=== PATIENT | male | born 1970 | race Caucasian/White ===

== ENCOUNTER → 2017-04-05 | Outpatient (CLI) | payer OTHER | LOC: FIMAGING 09:50 | PROVIDERS: ATTEND Family Medicine | DX: M25.532 Pain in left wrist (principal); M79.89 Other specified soft tissue disorders ==

== ENCOUNTER 2018-10-31 10:47 | Day surgery (SDC) | payer OTHER ==
[2018-10-31] MEDS ORDERED: DIAZEPAM 5 MG TAB PO ONE (10:49)
[2018-10-31] MEDS ORDERED: diphenhydrAMINE 25 MG CAP PO ONE (10:49)
[2018-10-31] MEDS ORDERED: NS 1,000 ML IV ONE (10:49)
[2018-10-31] MEDS ORDERED: FAMOTIDINE 20 MG TAB PO ONE (10:49)
[2018-10-31] MEDS ORDERED: ASPIRIN EC 325 MG TAB PO ONE (10:49)
[2018-10-31 11:20] LABS: PLATELET COUNT 184 10^3/uL (150-400)
[2018-10-31 11:30] LABS: INR 1.01 (0.83-1.16); PROTIME(PATIENT) 12.9 SEC (12.0-15.0)
[2018-10-31] MEDS ORDERED: fentaNYL 100 MCG/2 ML INJ ONE (12:14)
[2018-10-31] MEDS ORDERED: IOPAMIDOL (ISOVUE-370) 150 ML BTL IV ONE (12:14)
[2018-10-31] MEDS ORDERED: MIDAZOLAM 2 MG/2 ML VIAL ONE (12:14)
[2018-10-31] MEDS ORDERED: LIDOCAINE 1% 300 MG/30 ML SDV ONE (12:14)
--- NOTE | 2018-10-31 12:15 | PDHPUP ---
History & Physical Update H&P update statement: This history and physical update is based on an assessment of the patient which was completed after admission or registration (within 24 hours), but prior to the surgery/procedure. H&P update: H&P reviewed & patient examined, no change in patient's condition since H&P completed
--- NOTE | 2018-10-31 12:15 | PDPROPOC ---
Sedation Plan of Care Sedation Plan of Care: vital signs stable, mental status noted, patient educated of risks, benefits, alternatives, patient can tolerate sedation ASA Classification: ASA 2 Planned drugs: fentanyl, midazolam Mallampati Score: Class 1 Mallampati Reference Image: Patient passed 3-3-2 rule?: Yes
[2018-10-31] MEDS ORDERED: VERAPAMIL 5 MG/2 ML VIAL ONE (12:20)
[2018-10-31] MEDS ORDERED: HEPARIN 10,000 UNIT/10 ML MDV (1,000 UNIT/ML) ONE (12:21)
[2018-10-31] MEDS ORDERED: ATROPINE SULFATE 1 MG/10 ML SYR IVP PRN (14:24)
--- NOTE | 2018-10-31 14:24 | PDDXCAT ---
Diagnostic Cath Note - . 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 LCX: Luminal irregularities RCA: Dominant: Luminal irregularities of up to 20%. EDP: 13 mm of mercury LVEF: 70%, hypercontractile Wall motion: None Complications: None Estimated blood loss: <50ml Closure method: TR Band Assessment: Mild nonobstructive coronary artery disease. Preserved LV systolic function with normal filling pressures. Plan: Aggressive secondary prevention. Past
--- NOTE | 2018-10-31 16:23 | CPEKG ---
Test Reason : OPEN Blood Pressure : / mmHG Vent. Rate : 090 BPM Atrial Rate : 089 BPM P-R Int : 134 ms QRS Dur : 099 ms QT Int : 350 ms P-R-T Axes : 066 082 009 degrees QTc Int : 429 ms Sinus rhythm RSR V1 Confirmed by Lorena Bro ([id number] on 10/31/2018 4:22:52 PM Referred By: ALYSSA FELDMAN Confirmed By:Lorena Bro
== END 2018-10-31 15:53 | disposition home or self-care (01) ==
LOC: FCATH 10:47
PROVIDERS: ATTEND Internal Medicine Interventional Cardiology
PROC: B2111ZZ Fluoroscopy of Multiple Coronary Arteries using Low Osmolar Contrast (ICD-10-PCS; principal; 2018-10-31)
PROC: 4A023N7 Measurement of Cardiac Sampling and Pressure, Left Heart, Percutaneous Approach (ICD-10-PCS; principal; 2018-10-31)
PROC: B2151ZZ Fluoroscopy of Left Heart using Low Osmolar Contrast (ICD-10-PCS; principal; 2018-10-31)
DX: I25.119 Atherosclerotic heart disease of native coronary artery with unspecified angina pectoris (principal); I10 Essential (primary) hypertension; Z86.74 Personal history of sudden cardiac arrest; E78.5 Hyperlipidemia, unspecified
CPT/HCPCS: 93005; 93458; C1769; J1644; J2250; J3010; Q9967